=== PATIENT | female | born 1985 | race African-American/Black ===

== ENCOUNTER 2019-10-25 08:59 | Emergency (ER) | payer MEDICAID ==
[~2019-10-25] VITALS: Ht 154.9 cm; Wt 80.0 kg
[2019-10-25] MEDS ORDERED: PEN G BENZ/PEN G PROCAINE CR 1.2 MMU/2 ML IM ONE (11:15)
[2019-10-25 11:45] VITALS: BP 154/98
== END 2019-10-25 11:51 | disposition home or self-care (01) ==
LOC: EEVIPCON 08:59 → ER 08:59
DX: J02.9 Acute pharyngitis, unspecified (principal); B34.9 Viral infection, unspecified
CPT/HCPCS: 87070; 87430; 87804; 96372; 99283; J0558

== ENCOUNTER 2020-04-26 16:01 | Emergency (ER) | payer MEDICAID ==
[~2020-04-26] VITALS: Ht 154.9 cm; Wt 63.0 kg
[2020-04-26 17:25] VITALS: BP 119/76
== END 2020-04-26 17:35 | disposition home or self-care (01) ==
LOC: ER 16:01
DX: N93.9 Abnormal uterine and vaginal bleeding, unspecified (principal); Z97.5 Presence of (intrauterine) contraceptive device; Z87.891 Personal history of nicotine dependence
CPT/HCPCS: 81025; 93005; 99283